=== PATIENT | female | born 1975 | race Caucasian/White ===

== ENCOUNTER 2019-10-23 08:51 | Outpatient (CLI) | payer MEDICAID, SELFPAY ==
--- NOTE | 2019-10-23 10:30 | CT_ITS ---
WS: [id number] CT ABDOMEN AND PELVIS WITH CONTRAST HISTORY: UMBILICAL HERNIA TECHNIQUE: Imaging performed of the abdomen and pelvis with IV contrast. Single phase imaging of the abdomen. Coronal and sagittal reformats are submitted. All CT scans at [facility] use at least one of these dose optimization techniques: automated exposure control; mA and/or kV adjustment per patient size (includes targeted exams where dose is matched to clinical indication); or iterativ e reconstruction. IV CONTRAST: Omnipaque 300; 95 mL IV. Oral contrast: Yes. DLP: 1096.16 mGycm COMPARISON: None available. Lower thorax: Lung bases are clear. Heart is normal size. No hiatal hernia. Liver/biliary system: Normal size liver. Hepatic steatosis along the falciform ligament. No bile duct dilatation. Gallbladder: Normal. No gallstones or wall thickening. No pericholecystic fluid. Pancreas: Normal. Spleen: Normal. Adrenal glands: Normal. Right kidney: Normal. Left kidney: Normal. Aorta: Normal. Lymphadenopathy: Small, less than 1 cm lymph nodes near the reji hepatis and celiac axis. No enlarge d lymph nodes. Free fluid: None. GI tract: Normal appendix. No GI tract obstruction. Numerous diverticula in the sigmoid colon with mi ld hypertrophy of the mucosa. No obstruction or acute inflammation. Abdominal wall: Umbilical hernia with neck measuring 1.4 cm. Omental fat herniation without GI tract. Omental hernia measures 5.6 x 4.6 cm. Pelvis: Anteverted uterus. No pelvic masses. Small follicles in the LEFT ovary. Bones: Mild straightening of the normal lumbar lordosis. CT/CT abdomen pelvis w con* [id number] IMPRESSION: 1. Umbilical hernia containing omental fat only. Hernia measures 5.6 x 4.6 cm. 2. Sigmoid diverticulosis without acute diverticulitis.
[2019-10-23] MEDS: iohexol 300 mg/mL 50 mL Btl PO (10:55)
[2019-10-23] MEDS: iohexol 300 mg/mL 100 mL Btl IV (10:55)
== END 2019-10-23 08:52 | disposition home or self-care (01) ==
LOC: RADWPI 08:57
PROVIDERS: Visit Provider Surgery
DX: K42.9 Umbilical hernia without obstruction or gangrene (principal); K57.30 Diverticulosis of large intestine without perforation or abscess without bleeding
CPT/HCPCS: 74177; Q9967

== ENCOUNTER 2019-10-31 11:27 | Day surgery (SDC) | payer MEDICAID, SELFPAY ==
[2019-10-30 10:56] VITALS: BMI 37.8
--- NOTE | 2019-10-30 11:11 | ANES.PREANE2 ---
Pre-Anesthetic Assessment Pre-Anesthetic Assessment: Height/Weight: Height 1.73 m Weight 112.945 kg Preop Diagnosis: Umbilical hernia Proposed Procedure: Operation Date: 10/31/19 12:50 Proposed Procedures p Umbilical Hernia Repair w/ Mesh(Not Applicable) - Austin Mathis MD Familial anesthetic complications: None Social: Social History: No alcohol Comment: Quit 2 days ago Airway: Cervical ROM: WNL MP: 1 Dentition: False Pulmonary: Pulmonary: Asthma (not required an inhaler in years) CV/HEM: CV/HEM: HTN : : None reported Hepatic: Hepatic: None reported GI: GI: None reported Metabolic: Metabolic: None reported Musc/skel: Musc/skel: None reported Neuropsych: Neuropsych: None reported Anesthetic Plan: ASA status: 2 Anesthesia: General Risk of > 500 ml blood loss (7ml/kg in children): No PFSH Anesthesia PFSH: Medical History Hypertension Tobacco abuse Surgical History Status post delivery 4 c-sections Family History Other Hypertension Denies family history of Anesthesia complication Bleeding disorder Social History Smoking and tobacco status: current every day smoker cigarettes Packs smoked per day: 1 Alcohol intake: current Female Reproductive History: Date of last menstrual period: 10/30/19 Data Anesthesia Cardiac Studies: No Data to Display
[2019-10-30 11:12] LABS: OR HCG Qualitative Urine Negative (Negative)
[2019-10-31] VITALS (7 sets, daily range): BP systolic 140–186; BP diastolic 82–108; PULSE 60–99; RESP 11–18; TEMP 36.2–36.6; O2SAT 96–100; BMI 37.8
--- NOTE | 2019-10-31 11:27 | W.PM.OPSUD ---
Surgery/Procedure H&P Update DATE OF PROCEDURE: October 31, 2019 DATE H&P PERFORMED: 10/26/19 H&P UPDATE INFORMATION: I have reviewed H&P completed within last 30 days, I have examined patient prior to procedure and No changes to prior documentation PREOP DIAGNOSIS: Umbilical hernia PRIMARY INDICATION FOR PROCEDURE: The same. PLANNED PROCEDURE: Operation Date: 10/31/19 11:30 Proposed Procedures p Umbilical Hernia Repair w/ Mesh(Not Applicable) - Austin Mathis MD
[2019-10-31] MEDS: sodium chloride 0.9% 1,000 ML 30 ML IV (11:50)
--- NOTE | 2019-10-31 11:52 | ANES.PREANE2 ---
Pre-Anesthetic Assessment Pre-Anesthetic Assessment: Height/Weight: Height 1.73 m Weight 112.945 kg Temp Pulse Resp BP Pulse Ox 97.7 F 99 18 186/108 96 10/31/19 11:38 10/31/19 11:38 10/31/19 11:38 10/31/19 11:38 10/31/19 11:38 Preop Diagnosis: Umbilical hernia Proposed Procedure: Operation Date: 10/31/19 11:30 Proposed Procedures p Umbilical Hernia Repair w/ Mesh(Not Applicable) - Austin Mathis MD Was Beta Anmol taken within 24 hours: N/A Last intake: Intake Last Liquid Date 10/30/19 Last Liquid Time 15:00 Last Solid Date 10/30/19 Last Solid Time 15:00 Social: Social History: Tobacco and No alcohol Exam: Pre-Anes Outpt Exam: alert, oriented x 3, clear to auscultation bilaterally and regular rate & rhythm Airway: Submandibular: WNL Cervical ROM: WNL MP: 1 Dentition: Partials Additional comments: Upper Dentures Pulmonary: Pulmonary: Asthma CV/HEM: CV/HEM: HTN : : None reported Hepatic: Hepatic: None reported GI: GI: None reported Metabolic: Metabolic: None reported Musc/skel: Musc/skel: None reported Neuropsych: Neuropsych: Depression Anesthetic Plan: ASA status: 2 Anesthesia: General PFSH Anesthesia PFSH: Medical History Hypertension Tobacco abuse Surgical History Status post delivery 4 c-sections Family History Other Hypertension Denies family history of Anesthesia complication Bleeding disorder Social History Smoking and tobacco status: current every day smoker cigarettes Packs smoked per day: 1 Alcohol intake: current Female Reproductive History: Date of last menstrual period: 10/30/19 Data Anesthesia Other Labs: Laboratory Results - last 48 hr 10/30/19 11:08 Urine HCG, Qual Negative Cardiac Studies: No Data to Display
[2019-10-31] MEDS: heparin 5,000 unit/mL INJ 1 mL 3000 UNIT SUBCUT (12:01)
[2019-10-31] MEDS: lidocaine 2% INJ 20 mL INJECTION (12:50)
--- NOTE | 2019-10-31 12:57 | P.OP_ITS ---
Operative Report Date of procedure: October 31, 2019 Pre-op Diagnosis: Umbilical hernia Post-op diagnosis: same Post-op Diagnosis: Incarcerated omentum Procedure Done: Open primary repair of umbilical hernia with excision of hernial sac and contents Specimens removed/disposition: Hernial sac and content Surgeon: Austin Mathis Vision Care Associate: Surgical manuela Garcia Circulating nurse Milena Anesthesia: General (microfilm technician Atul) Estimated blood loss (mL): 5 Condition: stable Disposition: same day Brief History: This is a pleasant 43 years old female patient presented to my practice with symptomatic umbilical hernia, after thorough history physical examination and reviewing the chart and images with my personal interpretation f skye advising the patient with regard to her obesity status and chronic smoking, patient understood the risks(potential higher chance of recurrence) benefits alternatives and indications and she decided to proceed with open primary umbilical hernia repair with possible mesh placement. Informed consent per chart Procedure: Patient was identified in holding area and the site of the hernia was marked by me ,Patient was brought then to the operating room, general endotracheal anesthesia was administered by the anesthesia provider.prophylactic IV antibiotics were given per protocol Time-out was done verifying the patient's name/date of /planned procedure and destination after the procedure, all were in agreement. SCDs confirmed to be functioning, preoperative antibiotics administered per protocol, and beta andrey protocol was confirmed.Patient was given prophylactic heparin subcutaneous prior to surgery. Prep and drape of the abdomen was done under the usual sterile technique. I started by Infraumbilical skin incision, I was able to identify the incarcerated umbilical hernia, dissection was carried all the way down to the fascia, hernia sac was then opened and the sac was excised in addition to excess omental tissues after secured ligatures were applied in the form of 2-0 silk.Tissues excised sent for permanent pathology. I was able to free the overlying fat on top of the fascia, facilitate primary closure At that point the fascial defect was about inch in diameter, after freeing all the adhesions, under direct visualization I was able to use #1 PDS to repair the defect primarily in the form of figure of 8 an interrupted fashion,thorough irrigation of the wound was then achieved and hemostasis. Following the 2-0 Vicryl was used to attach the umbilicus to the underlying fascia, followed by deep dermal interrupted stitches, followed by 4-0 Monocryl was used for subcuticular closure of the skin incision. Lidocaine 2% was used for local infiltration to help postoperative pain Surgical glue was then applied Counts of sponges, needles and instruments were completed at the end of the procedure Patient tolerated the procedure well and was taken to the recovery area in stable condition I was present for the whole entire procedure
[2019-10-31] MEDS: HYDROcodone-acetaminophen 5-325 mg Tablet 1 TAB PO (13:56)
== END 2019-10-31 14:19 | disposition home or self-care (01) ==
PROVIDERS: PCP Nurse Practitioner Family; Visit Provider Surgery
PROC: (CPT 49585; principal; 2019-10-31 11:25)
DX: K42.9 Umbilical hernia without obstruction or gangrene (principal); I10 Essential (primary) hypertension; F17.210 Nicotine dependence, cigarettes, uncomplicated
CPT/HCPCS: 49585; 12345; 81025; 84703; 88302; 96372; J0131; J0690; J1644; J2001; J3010; J7030

== ENCOUNTER → 2019-11-16 11:32 | Outpatient (BNVA) | payer MEDICAID, SELFPAY | PROVIDERS: PCP Nurse Practitioner Family; Visit Provider Nurse Practitioner Family | DX: I10 Essential (primary) hypertension (principal); Z79.899 Other long term (current) drug therapy; Z13.6 Encounter for screening for cardiovascular disorders; Z98.890 Other specified postprocedural states; Z87.19 Personal history of other diseases of the digestive system; R20.0 Anesthesia of skin; R20.2 Paresthesia of skin; M75.102 Unspecified rotator cuff tear or rupture of left shoulder, not specified as traumatic | CPT/HCPCS: 36415; 80053; 80061; 81001; 82306; 83036; 84443; 85025 ==

== ENCOUNTER → 2020-08-06 09:04 | Outpatient (BNVA) | payer MEDICAID, SELFPAY | PROVIDERS: PCP Nurse Practitioner Family; Visit Provider Obstetrics & Gynecology | DX: E66.9 Obesity, unspecified (principal); Z12.4 Encounter for screening for malignant neoplasm of cervix; N92.0 Excessive and frequent menstruation with regular cycle | CPT/HCPCS: 83036; 84443; 88175; 88305 ==

== ENCOUNTER → 2020-08-13 10:16 | Outpatient (BNVA) | payer MEDICAID, SELFPAY | PROVIDERS: PCP Nurse Practitioner Family; Visit Provider Obstetrics & Gynecology | DX: N83.202 Unspecified ovarian cyst, left side (principal) | CPT/HCPCS: 76830 ==

== ENCOUNTER → 2020-09-12 09:01 | Outpatient (BNVA) | payer MEDICAID, SELFPAY | PROVIDERS: PCP Nurse Practitioner Family; Visit Provider Nurse Practitioner Family | DX: Z20.822 Contact with and (suspected) exposure to COVID-19 (principal) | CPT/HCPCS: 87635 ==

== ENCOUNTER → 2020-09-20 15:05 | Outpatient (BNVA) | payer MEDICAID, SELFPAY | PROVIDERS: PCP Nurse Practitioner Family; Visit Provider Obstetrics & Gynecology | DX: N92.0 Excessive and frequent menstruation with regular cycle (principal); Z20.822 Contact with and (suspected) exposure to COVID-19 | CPT/HCPCS: 87635 ==

== ENCOUNTER 2020-09-26 05:47 | Day surgery (SDC) | payer MEDICAID, SELFPAY ==
[2020-09-18 12:47] VITALS: BMI 39.5
--- NOTE | 2020-09-18 13:03 | ANES.PREANE2 ---
Pre-Anesthetic Assessment Pre-Anesthetic Assessment: Height/Weight: Height 1.73 m Weight 117.934 kg Preop Diagnosis: menorrhagia Proposed Procedure: Operation Date: 09/26/20 10:05 Proposed Procedures p Hysteroscopy w/ Ablation w/ Novasure [id number] N92.0(Not Applicable) - Melissa Santos MD s Dilation And Curettage (D&C) with myosure(Not Applicable) - Melissa Santos MD Familial anesthetic complications: None Social: Social History: Tobacco and No alcohol Exam: Pre-Anes Outpt Exam: alert, oriented x 3, clear to auscultation bilaterally and regular rate & rhythm Airway: Cervical ROM: WNL MP: 1 Dentition: False Pulmonary: Pulmonary: Asthma CV/HEM: CV/HEM: HTN Metabolic: Metabolic: Morbid obesity Anesthetic Plan: ASA status: 2 Anesthesia: MAC Risk of > 500 ml blood loss (7ml/kg in children): No PFSH Anesthesia PFSH: Medical History Hypertension Hypertension screen Medication management Nausea Numbness and tingling in left arm Otitis media Otitis media Rotator cuff tear, left Tobacco abuse Yeast vaginitis Surgical History History of umbilical hernia repair (~09/2019) Status post delivery 4 c-sections Family History Other Hypertension Denies family history of Anesthesia complication Bleeding disorder Social History (Updated 09/18/20 @ 10:55 by Tracy Morales LPN) Smoking and tobacco status: current every day smoker cigarettes Packs smoked per day: 1 Alcohol intake: never Substance/Drug Use: never Female Reproductive History: Date of last menstrual period: 10/30/19 Data Anesthesia Cardiac Studies: No Data to Display
[2020-09-18 13:28] LABS: Basophils % 0.4 %; Eosinophils # 0.2 10^3/uL (0.0-0.8); Eosinophils % 2.1 %; Hemoglobin 12.8 g/dL (11.5-15.3); Lymphocytes # 2.2 10^3/uL (0.8-4.8); Lymphocytes % 21.3 %; Mean Corpuscular Hemoglobin 29.6 pg (28.0-34.0); Mean Corpuscular Volume 92.6 fL (81-99); Monocytes # 0.6 10^3/uL (0.2-0.9); Neutrophils # 7.22 10^3/uL (1.8-7.7); Nucleated Red Blood Cells % 0 %; Platelet Count 247 10^3/cmm (130-400); Red Blood Count 4.32 10^6/uL (4.1-5.3); Red Cell Distribution Width 13.7 % (12.1-15.1); White Blood Count 10.3 10^3/uL (4.0-10.0)
[2020-09-18 14:14] LABS: Anion Gap 10.8 (5-19); Blood Urea Nitrogen 12 mg/dL (6-20); Calcium 8.4 mg/dL (8.5-10.5); Carbon Dioxide 25 mmol/L (22-29); Chloride 107 mmol/L (98-107); Glucose 141 mg/dL (65-115); Osmolality Calculated 290 mOsm/kg (285-295); Potassium 3.8 mmol/L (3.5-5.1); Sodium 139 mmol/L (136-145)
[2020-09-26] VITALS (7 sets, daily range): BP systolic 112–185; BP diastolic 49–94; PULSE 57–71; RESP 15–18; TEMP 36.3–36.9; O2SAT 99–100
[2020-09-26] MEDS: sodium chloride 0.9% 1,000 ML 30 ML IV (06:11)
--- NOTE | 2020-09-26 06:31 | P.ANESUD_ITS ---
Pre-Anesthetic Update Pre-Anesthetic Assessment: Date of Surgery/Procedure: 09/26/20 Preop Marcia gnosis: menorrhagia Proposed Procedure: Operation Date: 09/26/20 07:00 Proposed Procedures p Hysteroscopy w/ Ablation w/ Novasure [id number] N92.0(Not Applicable) - Melissa Santos MD s Dilation And Curettage (D&C) with myosure(Not Applicable) - Melissa Santos MD Any changes to Pre-Anesthetic Assessment?: No Last Intake: Intake Last Liquid Date 09/25/20 Last Liquid Time 22:00 Last Solid Date 09/25/20 Last Solid Time 18:00 Vitals: Temperature 97.3 F L 09/26/20 06:08 Pulse Rate 68 09/26/20 06:08 Respiratory Rate 18 09/26/20 06:08 Blood Pressure 185/94 09/26/20 06:08 Blood Pressure Ariadna n 124 09/26/20 06:08 Pulse Oximetry 99 09/26/20 06:08 Oxygen Delivery Me thod 09/26/20 06:08 Exam: Pre-Anes Outpt Exam: alert, oriented x 3, clear to auscultation bilaterally and regular rate & rhythm Cardiac Studies: No Data to Display
--- NOTE | 2020-09-26 06:57 | W.PM.OPSUD ---
Surgery/Procedure H&P Update DATE OF PROCEDURE: September 26, 2020 DATE H&P PERFORMED: 09/18/20 H&P UPDATE INFORMATION: I have reviewed H&P completed within last 30 days, I have examined patient prior to procedure and No changes to prior documentation PREOP DIAGNOSIS: menorrhagia PLANNED PROCEDURE: Operation Date: 09/26/20 07:00 Proposed Procedures p Hysteroscopy w/ Ablation w/ Novasure [id number] N92.0(Not Applicable) - Melissa Santos MD s Dilation And Curettage (D&C) with myosure(Not Applicable) - Melissa Santos MD
[2020-09-26 07:00] LABS: OR HCG Qualitative Urine Negative (Negative)
[2020-09-26] MEDS: midazolam 1 mg/mL INJ 2 mL 2 MG IVP (07:01)
--- NOTE | 2020-09-26 07:46 | P.OP_ITS ---
Operative Report Date of procedure: September 26, 2020 Pre-op Diagnosis: menorrhagia Post-op diagnosis: same Post-op Findings: Normal appearing endometrium Procedure Done: hysteroscopy, endometrial ablation with novasure Pathology: none sent Surgeon: Melissa Santos Anesthesia: MAC Estimated blood loss (mL): 2 IV fluids (mL): 400 Complications: none Findings: 11 week sized uterus hysteroscopy deficit 175 cavity length 7 (6.5) width 3.6 burn time 59 seconds Condition: stable Disposition: PACU Procedure: The patient was taken to the operating room where monitored anesthesia was administered and to be adequate. She was prepped and draped in the normal sterile fashion in the dorsal lithotomy position in [facility]. A weighted speculum was placed into the vagina and the anterior lip of the cervix grasped with a single-tooth tenaculum. The cervix was dilated to 15 [place]. The hysteroscope was advanced into the endometrial cavity. There was normal endometrium visualized. The MyoSure device was not deployed due to a normal appearing endometrium. Attention was then turned to the NovaSure portion of the procedure. The NovaSure device was advanced into the endometrial cavity. The endometrial length was 7 and the endometrial width was 3.6. The NovaSure device was activated and burn time was 59 seconds. All instruments were removed. The patient tolerated the procedure well. Sponge lap and needle counts were correct x3. She was taken to the recovery room in stable condition.
--- NOTE | 2020-09-26 07:58 | PM.DCS ---
Discharge Providers Date of Discharge: September 26, 2020 Attending Provider at Discharge: Melissa Santos MD Primary Care Provider: DANAE Esquivel Diagnoses at Discharge Discharge Diagnosis (1) Postoperative state: Status: Acute Reason for Visit Reason for Visit: Hysteroscopy, dilation and curettage with myosure, Hospital Course Hospital Course The patient was admitted for surgery. she did well postoperatively and was ready for discharge. Discharge Data Data Completed and Pending: Pending at discharge Category Date Time Status ES surgery / GI i mages Routine Exams 09/26/20 07:23 Taken Labs from last 24 hours 09/26/20 06:52 Urine HCG, Qual Negative Vitals: Last Vital Signs Temp 98.5 F 09/26/20 07:48 Pulse 71 09/26/20 07:56 Resp 16 09/26/20 07:56 BP 119/57 09/26/20 07:56 Pulse Ox 100 09/26/20 07:56 Discharge Plan Discharge Patient Disposition: Home Condition: Stable Prescriptions: Continued multivitamin with minerals [Hair,Skin and Nails] Tablet 1 tab PO DAILY RF: 0 zinc sulfate 66 mg tablet 66 mg PO DAILY RF: 0 calcium carbonate [Calcium 500] 500 mg calcium (1,250 mg) tablet 500 mg PO DAILY RF: 0 potassium gluconate 500 mg (83 mg) tablet 500 mg PO DAILY RF: 0 lisinopril 10 mg tablet 10 - 20 mg PO DAILY 30 Days Qty: 60 RF: 0 lisinopril-hydrochlorothiazide 20-25 mg tablet 1 tab PO DAILY Qty: 30 RF: 0 Discharge Orders: Discharge Order (Routine); Ordered 09/26/20 Ordered By: Melissa Santos Discharge Attestations Time Spent in Discharge Care*: less than 30 min Quality Metrics Clinical Quality Measures During this hospital stay, did patient experience: None Coding Level of Care Code Acute Chg FW DC note Diagnoses Postoperative state Z98.890
--- NOTE | 2020-09-26 12:35 | ANE.PACU2 ---
Inpatient post-anesthesia follow up: Airway intact: Yes Vital signs: Temperature 97.3 F Pulse Rate 57 Respiratory Rate 18 Blood Pressure 170/77 Pulse Oximetry 100 Oxygen Delivery Me thod Room Air Oxygen Flow Rate 8 Fraction of Inspir ed Oxygen Hydration adequate: Yes Nausea and vomiting: No Pain level: 2 Mental status: Baseline
== END 2020-09-26 08:38 | disposition home or self-care (01) ==
PROVIDERS: Anesthesiology; PCP Nurse Practitioner Family; Visit Provider Obstetrics & Gynecology
PROC: 0U598ZZ Destruction of Uterus, Via Natural or Artificial Opening Endoscopic (ICD-10-PCS; CPT 58563; principal; 2020-09-26 07:00)
DX: N92.0 Excessive and frequent menstruation with regular cycle (principal); I10 Essential (primary) hypertension; F17.210 Nicotine dependence, cigarettes, uncomplicated; Z82.49 Family history of ischemic heart disease and other diseases of the circulatory system; E66.01 Morbid (severe) obesity due to excess calories; Z68.39 Body mass index [BMI] 39.0-39.9, adult; J45.909 Unspecified asthma, uncomplicated
CPT/HCPCS: 58563; 80048; 84703; 85025; 96374; J2250; J2704; J3010; J7030

== ENCOUNTER → 2020-12-20 08:19 | Outpatient (BNVA) | payer MEDICAID, SELFPAY | PROVIDERS: PCP Nurse Practitioner Family; Visit Provider Nurse Practitioner Family | DX: J06.9 Acute upper respiratory infection, unspecified (principal); Z20.822 Contact with and (suspected) exposure to COVID-19 | CPT/HCPCS: 87635 ==

== ENCOUNTER → 2021-02-11 08:05 | Outpatient (BNVA) | payer MEDICAID, SELFPAY | PROVIDERS: PCP Nurse Practitioner Family; Referring Provider Nurse Practitioner Family; Visit Provider Orthopaedic Surgery | DX: M25.519 Pain in unspecified shoulder (principal); M67.911 Unspecified disorder of synovium and tendon, right shoulder | CPT/HCPCS: 73030 ==

== ENCOUNTER → 2021-08-18 16:22 | Outpatient (BNVA) | payer MEDICAID, SELFPAY | PROVIDERS: PCP Nurse Practitioner Family; Visit Provider Nurse Practitioner Family | DX: R06.2 Wheezing (principal) | CPT/HCPCS: 71046 ==

== ENCOUNTER → 2023-06-08 09:48 | Outpatient (BNVA) | payer MEDICAID, SELFPAY | PROVIDERS: PCP Nurse Practitioner; Visit Provider Nurse Practitioner Family | DX: J22 Unspecified acute lower respiratory infection (principal); R06.2 Wheezing; I10 Essential (primary) hypertension; Z79.899 Other long term (current) drug therapy | CPT/HCPCS: 80053; 80061; 81003; 83036; 84443; 85025; 87086 ==

== ENCOUNTER → 2023-06-15 13:47 | Outpatient (BNVA) | payer MEDICAID, SELFPAY | PROVIDERS: PCP Nurse Practitioner; Visit Provider Nurse Practitioner Family | DX: I10 Essential (primary) hypertension (principal); R06.2 Wheezing; J22 Unspecified acute lower respiratory infection | CPT/HCPCS: 71046 ==

== ENCOUNTER 2024-01-27 06:00 | Outpatient (CLI) | payer MEDICAID, SELFPAY | END 2024-01-27 06:01 | disposition home or self-care (01) | LOC: RAD 01-28 06:11 | PROVIDERS: PCP Nurse Practitioner Family; Visit Provider Nurse Practitioner Family | DX: Z13.6 Encounter for screening for cardiovascular disorders (principal); I10 Essential (primary) hypertension; Z79.899 Other long term (current) drug therapy | CPT/HCPCS: 80053; 80061; 81003; 82306; 83036; 84443; 85025 ==

== ENCOUNTER 2024-03-02 07:54 | Outpatient (CLI) | payer MEDICAID, SELFPAY ==
--- NOTE | 2024-03-02 08:00 | MR_ITS ---
WS: [id number] MRI BRAIN WITH AND WITHOUT CONTRAST HISTORY: R51.9 - Headache, unspecified COMPARISON: None available. TECHNIQUE: Multiplanar imaging performed through the brain with MultiHance 20 ml's IV. No acute infarcts are seen. Agarwal-white matter differentiation is well preserved. There is a small wel l-circumscribed 5 mm cyst along the sphenoidal portion of the sylvian fissure, best seen on the coron al imaging. Most consistent with a small arachnoid or sylvian fissure cyst. Benign and typically of n o consequence. No susceptibility artifacts or prior lacunar infarcts. Ventricles and extra-axial spaces are normal. Clivus and pituitary gland are normal. Visualized posterior fossa and brainstem are also normal. Postcontrast images are negative for masses or vascular malformations. Dural venous sinuses are normal. Paranasal sinuses: Small polyp LEFT maxillary sinus. No air-fluid levels. Mastoid air cells: Normal. Calvarium and scalp: Normal. MR/MR head wo/w con [id number] IMPRESSION: 1. No acute or prior infarcts. 2. No signal abnormality or volume loss. 3. Normal ventricles. 4. No pituitary abnormality.
[2024-03-02] MEDS: gadobenate dimeglumine 20 mL vial IV (08:42)
== END 2024-03-02 07:55 | disposition home or self-care (01) ==
LOC: RAD 07:55
PROVIDERS: PCP Nurse Practitioner Family; Visit Provider Nurse Practitioner Family
DX: R51.9 Headache, unspecified (principal); S09.90XA Unspecified injury of head, initial encounter; J34.1 Cyst and mucocele of nose and nasal sinus; J33.8 Other polyp of sinus; X58.XXXA Exposure to other specified factors, initial encounter
CPT/HCPCS: 70553